=== PATIENT | female | born 1995 | race Caucasian/White ===

== ENCOUNTER 2020-01-17 14:10 | Emergency (ER) | payer BC, OTHER ==
[~2020-01-17] VITALS: Ht 172.7 cm; Wt 99.8 kg
[2020-01-17] MEDS ORDERED: MOBIC15 MG PO (15:24)
[2020-01-17] MEDS ORDERED: NORCO 5-325 TA1 EAC2 PO (15:24)
[2020-01-17 15:49] VITALS: BP 151/85
== END 2020-01-17 15:52 | disposition home or self-care (01) ==
LOC: ER 14:10
DX: M25.561 Pain in right knee (principal); R20.0 Anesthesia of skin; R20.2 Paresthesia of skin; X50.1XXA Overexertion from prolonged static or awkward postures, initial encounter; Y93.89 Activity, other specified; Y92.89 Other specified places as the place of occurrence of the external cause; Y99.8 Other external cause status